=== PATIENT | male | born 1945 | race Caucasian/White ===

== ENCOUNTER 2023-01-21 14:43 | Observation (INO) ==
[2023-01-21] MEDS ORDERED: Metoclopramide 5 MG/ML VIAL (10 mg) IV SLOW PU ONE (15:45)
[2023-01-21] MEDS ORDERED: methylPREDNISolone SOD SUCC 125 mg 2 ML VIAL IV ONE (15:46)
[2023-01-21] MEDS ORDERED: Albuterol/Ipratropium NEB.SOL (2.5/0.5 MG) 3 ML NEB.SOLN INH ONE (15:46)
[2023-01-21 16:06] LABS: ABS Eosinophils 0.1 10^3/uL (0.0-0.5); ABS Lymphocytes 1.1 10^3/uL (1.0-4.8); ABS Monocytes 0.6 10^3/uL (0.0-1.1); ABS Neutrophils 3.7 10^3/uL (1.5-7.6); Hematocrit 40.4 % (38-53); Hemoglobin 13.5 g/dL (13.2-16.3); Lymphocyte % 20.3 %; Mean Corpuscular Hemoglobin 31.7 pg (27-33); Mean Corpuscular Hgb Conc 33.5 g/dL (31-36); Mean Corpuscular Volume 94.8 fL (80-97); Mean Platelet Volume 9.7 fL (7.5-11.2); Nucleated Red Blood Cells % 0.1 /100 WBC (0.0-0.4); Platelet Count 157 10^3/uL (150-450); Red Blood Count 4.26 10^6/uL (4.06-5.63); Red Cell Distribution Width 14.9 % (12-17); White Blood Count 5.5 10^3/uL (3.6-10.2)
[2023-01-21 16:13] LABS: INR 1.14 (0.83-1.13)
[2023-01-21 16:26] LABS: PCO2 Arterial 51 mmHg (35-45); PO2 Arterial 104 mmHg (80-100)
[2023-01-21 16:29] LABS: Albumin 4.2 g/dL (3.2-5.2); Albumin/Globulin Ratio 1.6 (1-3); Creatinine, Serum 1.42 mg/dL (0.67-1.17); Globulin 2.7 g/dL (2-4); Magnesium 2.2 mg/dL (1.9-2.7); Potassium 3.9 mmol/L (3.5-5.0); Total Bilirubin 0.5 mg/dL (0.2-1.0); Total Protein 6.9 g/dL (6.4-8.9); eGFR CKD-EPI 50.9 (>60)
[2023-01-21 17:31] LABS: Urine Appearance Clear; Urine Bilirubin Negative (Negative); Urine Blood Negative (Negative); Urine Color Yellow; Urine Glucose Negative (Negative); Urine Ketones Negative (Negative); Urine Nitrite Negative (Negative); Urine Protein Negative (Negative); Urine Specific Gravity 1.015 (1.002-1.030); Urine Urobilinogen Negative (Negative)
[2023-01-21] MEDS ORDERED: Iodixanol (CONTRAST) 320 MG/ML 100 ML SDV IV ONE (17:44)
[2023-01-21 17:47] LABS: High Sensitivity Troponin 1 Hr 14 pg/mL (<20)
[2023-01-21] MEDS ORDERED: Enoxaparin 40 MG/0.4 ML SYR SUBCUT SCH (23:45)
[2023-01-22] MEDS: Albuterol HFA INHALER 8 gm MDI INH PRN ×2 (02:14→08:50)
[2023-01-22] MEDS ORDERED: Mometasone/Formoter 100/5 MDI INH SCH (07:00)
[2023-01-22] MEDS ORDERED: NF: Liraglutide (NF) 18 MG/3 ML SUBCUT SCH (09:00)
[2023-01-22] MEDS ORDERED: Isosorbide Mononit ER 30mg TAB PO SCH (09:00)
[2023-01-22] MEDS ORDERED: Iodixanol (CONTRAST) 320 MG/ML 100 ML SDV IV ONE (10:17)
[2023-01-22 17:21] VITALS: BP 120/68
== END 2023-01-22 17:50 | disposition home or self-care (01) ==
LOC: EDHOLD 14:43 → ED 14:43 → SUATTDRO 19:34 → MED 21:45
PROVIDERS: ADMIT Internal Medicine; ATTEND Internal Medicine